=== PATIENT | male | born 1960 | race Native Hawaiian/Other Pacific Islander ===

== ENCOUNTER 2017-10-05 09:17 | Emergency (ER) | payer SELFPAY ==
[~2017-10-05 09:17] MED LIST: AZIT250T43 PO; LOSA50TA PO; ZOFR4TAB3 SL
[2017-10-05 09:21] VITALS: BP 116/69; PULSE 100; RESP 16; TEMP 97.6; O2SAT 99
[2017-10-05] MEDS ORDERED: Losartan Potassium PO (10:21)
--- NOTE | 2017-10-05 11:01 | PD ---
HPI Chief Complaint: Cold / Flu Symptoms Time Seen by Provider: 10:39 Travel History International Travel<30 days: No Contact w/Intl Traveler<30days: No Traveled to known affect area: No History of Present Illness HPI 57-year-old male presents to emergency department complaining of nonproductive cough, congestion, subjective fever without nausea, vomiting, or diarrhea approximately 3 days. Patient's is unaware if he's had any sick contacts. Patient denies chest pain, shortness of breath, abdominal pain. Patient is here with his son as well for similar symptoms. Patient has not taken any over- the-counter medications for his symptoms. [facility] Past Medical History Anemia: Yes Cardiovascular Problems: Yes Diminished Hearing: No Hypertension: Yes Social History Alcohol Use: No Tobacco Use: No Substance Use: No Allergies-Medications (Allergen,Severity, Reaction): Coded Allergies: No Known Allergies (Unverified Adverse Reaction, Unknown, 10/05/17) Reported Meds & Prescriptions Reported Meds & Active Scripts Active Tamiflu (Oseltamivir Phosphate) 75 Mg Cap 75 Mg PO DAILY 10 Days Reported Losartan (Losartan Potassium) 50 Mg Tab 50 Mg PO DAILY Review of Systems Except as stated in HPI: all other systems reviewed are Neg Physical Exam Narrative GENERAL: Well-nourished in no current distress, lying comfortable in bed SKIN: Focused skin assessment warm/dry. HEAD: Atraumatic. Normocephalic. EYES: Pupils equal and round. No scleral icterus. No injection or drainage. ENT: No nasal bleeding or discharge. Mucous membranes pink and moist. Mild postnasal drip without erythema NECK: Trachea midline. No JVD. No lymphadenopathy CARDIOVASCULAR: Regular rate and rhythm. No murmur appreciated. RESPIRATORY: No accessory muscle use. Clear to auscultation. Breath sounds equal bilaterally. No wheezes, rales, rhonchi GASTROINTESTINAL: Abdomen soft, non-tender, nondistended. No CVA tenderness MUSCULOSKELETAL: No obvious deformities. No clubbing. No cyanosis. No edema. NEUROLOGICAL: Awake and alert. No obvious cranial nerve deficits. Motor grossly within normal limits. Normal speech. PSYCHIATRIC: Appropriate mood and affect; insight and judgment normal. Data Data Last Documented VS Vital Signs Date Time Temp Pulse Resp B/P (MAP) Pulse Ox O2 Delivery O2 Flow Rate FiO2 10/05/17 09:21 97.6 100 16 116/69 (85) 99 Orders Orders Influenzae A/B Antigen (10/05/17 10:47) Ed Discharge Order (10/05/17 11:51) MDM Medical Decision Making Medical Screen Exam Complete: Yes Emergency Medical Condition: Yes Differential Diagnosis Influenza, viral syndrome, upper respiratory infection Narrative Course 57-year-old male presents to emergency department complaining of nonproductive cough, congestion, subjective fever without nausea, vomiting, or diarrhea approximately 3 days. Patient's is unaware if he's had any sick contacts. Patient denies chest pain, shortness of breath, abdominal pain. Patient is here with his son as well for similar symptoms. Patient has not taken any over- the-counter medications for his symptoms. Vital signs stable. Afebrile Physical exam findings unremarkable. Patient will receive prophylactic Tamiflu. Patient should return to his primary care physician for follow-up of symptoms. Ensure adequate fluid intake and nutrition diet. Return to the emergency department for worsening or persistent symptoms. Diagnosis Primary Impression: Viral syndrome Referrals: Primary Care Physician Additional Instructions: Follow-up with primary care physician this week. If your symptoms persist or worsen return to the emergency. Remained active as tolerated to prevent worsening of your symptoms. Ensure you have adequate fluid intake You may alternate tylenol or motrin per package instructions for your symptoms. Scripts Oseltamivir (Tamiflu) 75 Mg Cap 75 MG PO DAILY for Mgmt Viral Infection for 10 Days, #10 CAP 0 Refills Prov: Marilynn West 10/05/17 Disposition: 01 DISCHARGE HOME Condition: Stable Marilynn West Oct 05, 2017 11:01
[2017-10-05] MEDS ORDERED: OSEL75 PO (11:46)
[2017-10-07] MEDS ORDERED: LOSA50TA PO (11:01)
== END 2017-10-05 12:06 | disposition home or self-care (01) ==
LOC: PHEFT 09:17
DX: B34.9 Viral infection, unspecified (principal); D64.9 Anemia, unspecified; I10 Essential (primary) hypertension
CPT/HCPCS: 87804; 99283